=== PATIENT | male | born 1940 ===

== ENCOUNTER 2020-12-21 20:41 | Emergency (ER) | payer MEDICARE ==
--- NOTE | 2020-12-21 21:41 | EDM.PDOC ---
ED HPI GENERAL MEDICAL PROBLEM - General Chief Complaint: Cardiovascular Problem Stated Complaint: MEDICAL [facility] Time Seen by Provider: 12/21/20 21:41 Source of Information: Reports: Patient History Limitations: Reports: No Limitations - History of Present Illness INITIAL COMMENTS - FREE TEXT/NARRATIVE: pt arrived with a history of an episode where he looked very pale when coming back from supper. He had a bp in the 70s His sats were low and this lasted for about 1/2 hour. He has been stable since arrival. His bp remains on the lower side. Onset: Today, Sudden Duration: Minutes: Location: Reports: Chest, Generalized Associated Symptoms: Reports: Diaphoresis, Shortness of Breath, Syncope, Other (pt had a near syncopal episode. ) Treatments [employer]: Reports: Oxygen Left Hip Pain Score (Numeric/FACES): 3 - Related Data Allergies Allergy/AdvReac Type Severity Reaction Status Date / Time bee venom protein (honey bee) Allergy Cannot Verified 12/21/20 21:15 Remember Home Meds: Home Meds Acetaminophen 1,000 mg PO BID 12/21/20 [History] Dulaglutide [Trulicity] 1.5 mg SQ ASDIRECTED 12/21/20 [History] Escitalopram [Lexapro] 20 mg PO DAILY 12/21/20 [History] Gabapentin [Neurontin] 50 mg PO BID 12/21/20 [History] Gabapentin [Neurontin] 100 mg PO PCDINNER 12/21/20 [History] Magnesium Gluconate [Mag-G] 1 tab PO BID 12/21/20 [History] Metoprolol Succinate 100 mg PO BEDTIME 12/21/20 [History] Naproxen Sodium 220 mg PO BID 12/21/20 [History] Omeprazole 20 mg PO DAILY 12/21/20 [History] Tamsulosin [Flomax] 0.4 mg PO DAILY 12/21/20 [History] amLODIPine [Norvasc] 5 mg PO DAILY 12/21/20 [History] atorvaSTATin Calcium [Atorvastatin Calcium] 80 mg PO BEDTIME 12/21/20 [History] lamoTRIgine [Lamotrigine] 25 mg PO BID 12/21/20 [History] metFORMIN [Glucophage] 1,000 mg PO BIDMEALS 12/21/20 [History] Social & Family History - Tobacco Use Tobacco Use Status *Q: Former Tobacco User Used Tobacco, but Quit: Yes Month/Year Tobacco Last Used: unknown - Recreational Drug Use Recreational Drug Use: No ED ROS GENERAL - Review of Systems Review Of Systems: See Below Constitutional: Reports: Weakness HEENT: Reports: No Symptoms Respiratory: Reports: Shortness of Breath Cardiovascular: Reports: Syncope, Other (pt had a low bp. ) Endocrine: Reports: No Symptoms GI/Abdominal: Reports: No Symptoms : Reports: No Symptoms Musculoskeletal: Reports: No Symptoms Skin: Reports: No Symptoms ED EXAM, GENERAL - Physical Exam Exam: See Below Free Text/Narrative:: pt arrived with a history of being sob ,low bp and low o2 sats. Exam Limited By: No Limitations General Appearance: Alert, Anxious, Moderate Distress Ears: Normal TMs Nose: Normal Inspection Throat/Mouth: Normal Inspection Head: Atraumatic Neck: Normal Inspection Respiratory/Chest: No Respiratory Distress Cardiovascular: Regular Rate, Rhythm GI/Abdominal: Soft, Non-Tender (Male) Exam: Deferred Rectal (Males) Exam: Deferred Back Exam: Normal Inspection Extremities: Pedal Edema, Other ( edema left leg) Neurological: Alert, Oriented, Normal Cognition Psychiatric: Anxious Course - Vital Signs Last Recorded V/S: Last Vital Signs Temp 36.3 C 12/21/20 21:05 Pulse 92 12/22/20 02:14 Resp 16 12/22/20 02:14 BP 117/61 12/22/20 02:14 Pulse Ox 97 12/22/20 02:14 Orthostatic Blood Pressure [ 90/49 Sitting] Orthostatic Blood Pressure [ 92/50 Supine] - Orders/Labs/Meds Labs: Laboratory Tests 12/21/20 12/21/20 12/21/20 Range/Units 01:44 21:48 21:48 WBC 13.7 H (4.5-11.0) K/uL RBC 3.30 L (4.30-5.90) M/uL Hgb 9.4 L (12.0-15.0) g/dL Hct 31.3 L (40.0-54.0) % MCV 95 (80-98) fL MCH 29 (27-31) pg MCHC 30 L (32-36) % Plt Count 477 H (150-400) K/uL Add Manual Diff Yes Neutrophils % (Manual) 56 (36-66) % Band Neutrophils % 4 L (5-11) % Lymphocytes % (Manual) 26 (24-44) % Monocytes % (Manual) 8 H (2-6) % Eosinophils % (Manual) 6 H (2-4) % Anisocytosis Few Microcytosis Few Target Cells Schistocytes Few PT (9.5-12.0) sec INR (0.80-1.20) APTT (27.0-36.0) sec D-Dimer, Quantitative (0.0-500.0) ng/mL Sodium 140 (140-148) mmol/L Potassium 4.8 (3.6-5.2) mmol/L Chloride 103 (100-108) mmol/L Carbon Dioxide 23 (21-32) mmol/L Anion Gap 13.9 (5.0-14.0) mmol/L BUN 52 H D (7-18) mg/dL Creatinine 1.6 H D (0.8-1.3) mg/dL Est Cr Clr Drug Dosing 38.65 mL/min Estimated GFR (MDRD) 42 L (>60) Glucose 99 (74-106) mg/dL Lactic Acid (0.4-2.0) mmol/L Calcium 9.3 (8.5-10.1) mg/dL Total Bilirubin 0.8 (0.2-1.0) mg/dL AST 14 L (15-37) U/L ALT 29 (12-78) U/L Alkaline Phosphatase 157 H (46-116) U/L Troponin I (0.000-0.056) ng/mL Total Protein 6.5 (6.4-8.2) g/dL Albumin 3.3 L (3.4-5.0) g/dL Globulin 3.2 (2.3-3.5) g/dL Albumin/Globulin Ratio 1.0 L (1.2-2.2) Procalcitonin ng/mL Urine Color Yellow (YELLOW) Urine Appearance Clear (CLEAR) Urine pH 5.5 (5.0-8.0) Ur Specific Datil 1.020 (1.008-1.030) Urine Protein Negative (NEGATIVE) mg/dL Urine Glucose (UA) Negative (NEGATIVE) mg/dL Urine Ketones Negative (NEGATIVE) mg/dL Urine Occult Blood Negative (NEGATIVE) Urine Nitrite Negative (NEGATIVE) Urine Bilirubin Negative (NEGATIVE) Urine Urobilinogen 0.2 (0.2-1.0) EU/dL Ur Leukocyte Esterase Negative (NEGATIVE) Urine RBC 0-5 (0-5) Urine WBC 0-5 (0-5) Ur Epithelial Cells Few Urine Bacteria Few 12/21/20 12/21/20 12/21/20 Range/Units 21:48 23:29 23:37 WBC (4.5-11.0) K/uL RBC (4.30-5.90) M/uL Hgb (12.0-15.0) g/dL Hct (40.0-54.0) % MCV (80-98) fL MCH (27-31) pg MCHC (32-36) % Plt Count (150-400) K/uL Add Manual Diff Neutrophils % (Manual) (36-66) % Band Neutrophils % (5-11) % Lymphocytes % (Manual) (24-44) % Monocytes % (Manual) (2-6) % Eosinophils % (Manual) (2-4) % Anisocytosis Microcytosis Target Cells Schistocytes PT 10.4 (9.5-12.0) sec INR 0.95 (0.80-1.20) APTT 25.4 L (27.0-36.0) sec D-Dimer, Quantitative 4926.10 H (0.0-500.0) ng/mL Sodium (140-148) mmol/L Potassium (3.6-5.2) mmol/L Chloride (100-108) mmol/L Carbon Dioxide (21-32) mmol/L Anion Gap (5.0-14.0) mmol/L BUN (7-18) mg/dL Creatinine (0.8-1.3) mg/dL Est Cr Clr Drug Dosing mL/min Estimated GFR (MDRD) (>60) Glucose (74-106) mg/dL Lactic Acid (0.4-2.0) mmol/L Calcium (8.5-10.1) mg/dL Total Bilirubin (0.2-1.0) mg/dL AST (15-37) U/L ALT (12-78) U/L Alkaline Phosphatase (46-116) U/L Troponin I < 0.017 (0.000-0.056) ng/mL Total Protein (6.4-8.2) g/dL Albumin (3.4-5.0) g/dL Globulin (2.3-3.5) g/dL Albumin/Globulin Ratio (1.2-2.2) Procalcitonin ng/mL Urine Color (YELLOW) Urine Appearance (CLEAR) Urine pH (5.0-8.0) Ur Specific Datil (1.008-1.030) Urine Protein (NEGATIVE) mg/dL Urine Glucose (UA) (NEGATIVE) mg/dL Urine Ketones (NEGATIVE) mg/dL Urine Occult Blood (NEGATIVE) Urine Nitrite (NEGATIVE) Urine Bilirubin (NEGATIVE) Urine Urobilinogen (0.2-1.0) EU/dL Ur Leukocyte Esterase (NEGATIVE) Urine RBC (0-5) Urine WBC (0-5) Ur Epithelial Cells Urine Bacteria 12/21/20 12/21/20 Range/Units 23:38 23:39 WBC (4.5-11.0) K/uL RBC (4.30-5.90) M/uL Hgb (12.0-15.0) g/dL Hct (40.0-54.0) % MCV (80-98) fL MCH (27-31) pg MCHC (32-36) % Plt Count (150-400) K/uL Add Manual Diff Neutrophils % (Manual) (36-66) % Band Neutrophils % (5-11) % Lymphocytes % (Manual) (24-44) % Monocytes % (Manual) (2-6) % Eosinophils % (Manual) (2-4) % Anisocytosis Microcytosis Target Cells Schistocytes PT (9.5-12.0) sec INR (0.80-1.20) APTT (27.0-36.0) sec D-Dimer, Quantitative (0.0-500.0) ng/mL Sodium (140-148) mmol/L Potassium (3.6-5.2) mmol/L Chloride (100-108) mmol/L Carbon Dioxide (21-32) mmol/L Anion Gap (5.0-14.0) mmol/L BUN (7-18) mg/dL Creatinine (0.8-1.3) mg/dL Est Cr Clr Drug Dosing mL/min Estimated GFR (MDRD) (>60) Glucose (74-106) mg/dL Lactic Acid 2.5 H (0.4-2.0) mmol/L Calcium (8.5-10.1) mg/dL Total Bilirubin (0.2-1.0) mg/dL AST (15-37) U/L ALT (12-78) U/L Alkaline Phosphatase (46-116) U/L Troponin I (0.000-0.056) ng/mL Total Protein (6.4-8.2) g/dL Albumin (3.4-5.0) g/dL Globulin (2.3-3.5) g/dL Albumin/Globulin Ratio (1.2-2.2) Procalcitonin < 0.05 ng/mL Urine Color (YELLOW) Urine Appearance (CLEAR) Urine pH (5.0-8.0) Ur Specific Datil (1.008-1.030) Urine Protein (NEGATIVE) mg/dL Urine Glucose (UA) (NEGATIVE) mg/dL Urine Ketones (NEGATIVE) mg/dL Urine Occult Blood (NEGATIVE) Urine Nitrite (NEGATIVE) Urine Bilirubin (NEGATIVE) Urine Urobilinogen (0.2-1.0) EU/dL Ur Leukocyte Esterase (NEGATIVE) Urine RBC (0-5) Urine WBC (0-5) Ur Epithelial Cells Urine Bacteria Meds: Medications Discontinued Medications Generic Name Dose Route Start Last Admin Trade Name Freq PRN Reason Stop Dose Admin Sodium Chloride 1,000 mls @ 600 mls/hr 12/21/20 22:00 12/21/20 22:18 Normal Saline IV 600 mls/hr ASDIRECTED HUSSAIN Administration Sodium Chloride 1,000 mls @ 500 mls/hr 12/21/20 23:45 Normal Saline IV ASDIRECTED HUSSAIN Sodium Chloride 100 mls @ 4 mls/sec 12/22/20 00:18 12/22/20 00:25 Normal Saline IV 12/22/20 00:19 4 mls/sec ASDIRECTED STA Administration Iopamidol 100 ml 12/22/20 00:17 12/22/20 00:24 Isovue-370 (76%) IV 12/22/20 00:18 100 ml . DIRECTED STA Administration - Re-Assessments/Exams Free Text/Narrative Re-Assessment/Exam: 12/21/20 23:50 pt has a elevated ddimer and needs a angio of the chest. Dr Nino consulting radiology was consulted and he felt since he had a liter of fluids and could have more and his previous creatnine was better that we could do a angio of the chest. Pt will also have a trop and ekg. 12/22/20 01:52 pt had a cat scan of the chest which was neg for pulmonary emboli. He had a neg trop and his ekg looked good. He has been given 2 liters of fluid and his bp is much better. He is more alert. His daughter is her visiting with him. 12/22/20 01:58 ua is clear with no sign of infection. Departure - Departure Time of Disposition: 02:45 Disposition: Home, Self-Care 01 Condition: Fair Clinical Impression: Dehydration, Hypotension Instructions: Hypotension, Dehydration, Adult Referrals: PCP,None [Primary Care Provider] - Forms: ED Department Discharge Care Plan Goals: Needs to push fluids, hold amlodopine in am. decrease to 2.5 mg daily restart on tuesday. Sepsis Event Note (ED) - Evaluation Sepsis Screening Result: No Definite Risk
[2020-12-21] MEDS ORDERED: Sodium Chloride 0.9% 1,000 ML IV SCH ×2 (22:00→23:45)
[2020-12-22] MEDS ORDERED: Iopamidol 755 Mg/ML 100 ML Bottle IV STA (00:17)
[2020-12-22] MEDS ORDERED: Sodium Chloride 0.9% 100 ML IV STA (00:18)
--- NOTE | 2020-12-22 01:29 | CRLCT ---
INDICATION: Recent hip surgery. Elevated D-dimer. Evaluate for pulmonary embolism. CT CHEST WITH CONTRAST TECHNIQUE: Multidetector CT imaging was performed through the chest following intravenous contrast administration using 100 mL Isovue 370. Coronal and sagittal reconstructions were generated. COMPARISON: None. FINDINGS: Lungs and airways: [id number] dependent and basilar lung atelectasis bilaterally. No definite focal lung consolidation. No confluent infiltrates, suspicious nodules, or masses. Central airways are patent. Pleura and pleural spaces: No pleural effusions or pneumothorax. Heart and mediastinum: Borderline cardiac enlargement. Minimal pericardial fluid, likely physiologic. No pathologically enlarged mediastinal lymph nodes. Vascular structures: No filling defects in the pulmonary arterial tree to suggest pulmonary emboli. Normal caliber aorta without evidence of dissection. Mild aortic atherosclerotic changes. Moderate coronary artery calcifications. Chest wall and axillae: No mass or axillary lymphadenopathy. Osseous structures: Spinal degenerative changes. No acute fractures identified. Upper abdomen: Numerous small hypodensities scattered throughout the liver are not well characterized but are favored to represent hepatic cysts. IMPRESSION: 1. No pulmonary emboli or other acute intrathoracic abnormality identified. 2. Nonacute additional findings as detailed above. TREVOR DANIEL MD [facility] Dictated by Jimmy Daniel MD @ 12/22/2020 1:26:06 AM Dictated by: Jimmy Daniel MD @ 12/22/2020 01:27:20 (Electronically Signed)
--- NOTE | 2020-12-22 11:01 | CR ---
CHEST: Portable 12/22/2020 at 12:18 AM CLINICAL HISTORY:High d-dimer COMPARISON:None FINDINGS: Heart size and pulmonary vascular are normal. Lung anderson are free of infiltrate effusion or pneumothorax. There are some streaky density in the left lung base which is likely some patchy atelectasis or scarring. IMPRESSION: No acute cardiac pulmonary process
== END 2020-12-22 02:46 | disposition home or self-care (01) ==
LOC: JP.ED 20:41
DX: E86.0 Dehydration (principal); I95.9 Hypotension, unspecified; R79.1 Abnormal coagulation profile; M25.552 Pain in left hip; R60.0 Localized edema; Z87.891 Personal history of nicotine dependence; Z91.030 Bee allergy status; Z79.899 Other long term (current) drug therapy
CPT/HCPCS: 36415; 71045; 71275; 80053; 81001; 83605; 84145; 84484; 85025; 85379; 85610; 85730; 93005; 99285; J7030; Q9967; 99284